=== PATIENT | male | born 2000 | race Caucasian/White ===

== ENCOUNTER 2023-03-31 14:20 | Emergency (ER) | payer SELFPAY ==
[~2023-03-31] VITALS: Ht 172.7 cm; Wt 120.2 kg
[2023-03-31 14:42] VITALS: BP 138/96; PULSE 93; RESP 18; TEMP 97.4; O2SAT 98
[2023-03-31] MEDS ORDERED: LORA10TA19 PO (15:53)
== END 2023-03-31 16:01 | disposition home or self-care (01) ==
LOC: MED 14:20
DX: R21 Rash and other nonspecific skin eruption (principal); Z79.899 Other long term (current) drug therapy
CPT/HCPCS: 99282